=== PATIENT | female | born 1995 | race Two or more races ===

== ENCOUNTER 2024-11-04 02:02 | Emergency (ER) | payer MEDICAID ==
[~2024-11-04] VITALS: Ht 160 cm; Wt 55.8 kg
[2024-11-04 02:27] VITALS: TEMP 98.6
[2024-11-04 03:34] LABS: APPEARANCE,URINE CLEAR (CLEAR); BLOOD, URINE 3+ Ery/uL (NEGATIVE); LEUKOCYTE ESTERASE ,URINE NEGATIVE (NEGATIVE); NITRITE, URINE NEGATIVE (NEGATIVE); UGLUCOSE NEGATIVE (NEGATIVE)
[2024-11-04 03:35] LABS: ADD URINE CULTURE NO; PREGNANCY TEST URINE QUAL NEGATIVE (NEGATIVE); SQUAMOUS EPITHELIAL CELL,UR Few /HPF (None Seen)
[2024-11-04 03:35] LABS: PLATELET COUNT (AUTO) 279 K/uL (150-450); RED BLOOD CELL COUNT(AUTO) 4.93 MIL/uL (4.0-5.2); RED CELL DISTRIBUTION WIDTH 13.9 % (11.5-15.0); WHITE BLOOD COUNT (AUTO) 7.8 K/uL (4.3-11.0)
[2024-11-04 03:47] LABS: AMPHETAMINE, URINE NEGATIVE (NEGATIVE); BARBITURATE, URINE NEGATIVE (NEGATIVE); BENZODIAZEPINE, URINE NEGATIVE (NEGATIVE); CANNABINOID, URINE NEGATIVE (NEGATIVE); COCCAINE, URINE NEGATIVE (NEGATIVE); OPIATE, URINE NEGATIVE (NEGATIVE)
[2024-11-04 03:47] LABS: ASPARTATE AMINOTRANSFERASE 19.0 U/L (15-37); CALCIUM, SERUM 9.4 mg/dL (8.5-10.1); CREATININE 0.8 mg/dL (0.6-1.3); SODIUM SERUM 141.0 mmol/L (136-145); TOTAL PROTEIN, SERUM 8.2 g/dL (6.4-8.2); UREA NITROGEN, BLOOD 11.0 mg/dL (7-18)
[2024-11-04] MEDS ORDERED: OMEP20TA20 PO (05:16)
[2024-11-04 05:45] VITALS: BP 112/74; O2SAT 98
== END 2024-11-04 05:45 | disposition home or self-care (01) ==
LOC: ER 02:15
DX: R10.13 Epigastric pain (principal); Z79.899 Other long term (current) drug therapy; Z87.19 Personal history of other diseases of the digestive system
CPT/HCPCS: 36415; 80053-TC; 81001; 83690-TC; 84703-TC; 85025-TC

== ENCOUNTER 2024-11-05 22:34 | Emergency (ER) | payer MEDICAID ==
[~2024-11-05] VITALS: Ht 162.6 cm; Wt 65.8 kg
[~2024-11-05 22:34] MED LIST: OMEP20TA20 PO
[2024-11-06 00:12] VITALS: BP 120/78; TEMP 98.4; O2SAT 97
== END 2024-11-06 00:13 | disposition home or self-care (01) ==
LOC: ER 22:39
DX: R51.9 Headache, unspecified (principal); R10.9 Unspecified abdominal pain; K29.70 Gastritis, unspecified, without bleeding; Z79.899 Other long term (current) drug therapy; Z87.19 Personal history of other diseases of the digestive system
CPT/HCPCS: 70450-TC